=== PATIENT | female | born 1945 | race Caucasian/White ===

== ENCOUNTER 2020-04-29 16:41 | Inpatient (IN) | payer MEDICARE, OTHER ==
[~2020-04-29] VITALS: Ht 162.6 cm; Wt 77.3 kg
[2020-04-29 17:56] LABS: Basophils # (auto) 0 10 ^3/uL (0-0.2); Basophils % (auto) 0.2 % (0.0-2.0); Eosinophils # (auto) 0 10 ^3/uL (0-0.8); Eosinophils % (auto) 0.1 % (0.0-7.0); Hematocrit 47.2 % (36.0-46.0); Hemoglobin 15.5 g/dL (12.2-16.2); Lymphocytes % (auto) 5.4 % (10.0-50.0); Mean Corpuscular Hemoglobin 28.6 pg (28.0-32.0); Mean Corpuscular Hgb Conc. 32.9 g/dL (32.0-36.0); Monocytes # (auto) 1.1 10 ^3/uL (0-1.3); Monocytes % (auto) 5.7 % (0.0-12.0); Neutrophils # (auto) 16.8 10 ^3/uL (1.6-8.6); Neutrophils % (auto) 88.6 % (37.0-80.0); Nucleated Red Blood Cells % 0.1 %; Platelet Count (auto) 327 10^3/uL (140-450); Red Blood Cells 5.42 10^6/uL (4.0-5.20); Red Cell Distribution Width 16.6 % (11.8-14.3)
[2020-04-29 18:15] LABS: Albumin 3.7 g/dL (3.4-5.0); Anion Gap 16 (5-15); Blood Urea Nitrogen 33 mg/dL (7-18); Calcium 9.3 mg/dL (8.5-10.1); Carbon Dioxide 20 mmol/L (21-32); Chloride 95 mmol/L (98-107); Glucose 157 mg/dL (74-106); Potassium 4.2 mmol/L (3.5-5.1); Sodium 131 mmol/L (136-145)
[2020-04-29 18:21] LABS: Alanine Aminotransferase 43 U/L (13-56); Alkaline Phosphatase 89 U/L (45-117); Aspartate Aminotransferase 26 U/L (15-37); BUN/Creatinine Ratio 26.6; Bilirubin, Total 0.9 mg/dL (0.2-1.0); GFR African American 54 mL/min; GFR Non-African American 45 mL/min
[2020-04-29] MEDS ORDERED: MORPHINE SULFATE 4 MG/ML SYR/VIAL IV ONE (19:15)
[2020-04-29] MEDS ORDERED: SODIUM CHLORIDE 0.9% 1,000 ML IV ONE (19:15)
[2020-04-29] MEDS ORDERED: ONDANSETRON HCL 4 MG/2 ML VIAL IV ONE (19:15)
[2020-04-29] MEDS ORDERED: MORPHINE SULF INJ 2 MG/ML SYRINGE 1ML IV ONE (22:45)
[2020-04-29 23:58] LABS: INR 1.01 (0.9-1.15); Partial Thromboplastin Time 25.4 sec (23.64-32.05)
[2020-04-30] MEDS ORDERED: PANTOPRAZOLE 40 MG/10 ML VIAL INJ IV ONE (02:45)
[2020-04-30] MEDS ORDERED: MORPHINE SULFATE 4 MG/ML SYR/VIAL IV ONE (02:45)
[2020-04-30] MEDS ORDERED: PANTOPRAZOLE 40mg/50ML NS AE 50 ML IV ONE (02:45)
[2020-04-30] MEDS ORDERED: PROMETHAZINE HCL 25 MG/ML 1ML IV ONE ×2 (08:45)
[2020-04-30] MEDS ORDERED: FAMOTIDINE (10MG/ML) 2ML VL IV ONE (09:45)
[2020-04-30] MEDS ORDERED: ACETAMINOPHEN 325 MG TAB PO PRN (09:45)
[2020-04-30] MEDS ORDERED: ONDANSETRON HCL 4 MG/2 ML VIAL IV PRN ×2 (09:45→16:00)
[2020-04-30] MEDS ORDERED: SODIUM CHLORIDE 0.9% 1,000 ML IV SCH (09:45)
[2020-04-30] MEDS ORDERED: NITROGLYCERIN 0.4 MG SL TAB SL PRN (09:45)
[2020-04-30] MEDS ORDERED: DOCUSATE SOD 100 MG CAP PO PRN (09:45)
[2020-04-30] MEDS ORDERED: MORPHINE SULF INJ 2 MG/ML SYRINGE 1ML IV PRN ×2 (09:45)
[2020-04-30] MEDS ORDERED: ceFAZolin 1GM/50ML 50 ML IV ONE (09:45)
[2020-04-30] MEDS ORDERED: ALUM & MAG HYDROX-SIMETH LIQ(MAALOX) 30 ML PO PRN (09:45)
[2020-04-30] MEDS: FAMOTIDINE (10MG/ML) 2ML VL IV SCH ×2 (10:00→22:27)
[2020-04-30 10:02] LABS: Cholesterol 164 mg/dL (< 200); HDL Cholesterol 31 mg/dL (40-59); LDL Cholesterol 109 mg/dL (< 100); Triglycerides 194 mg/dL (< 150)
[2020-04-30] MEDS ORDERED: metroNIDAZOLE 500MG/100ML 100 ML IV ONE (11:15)
[2020-04-30 11:51] VITALS: BP 120/69
[2020-04-30] MEDS: BUPIVACAINE W/ EPINEPH 0.25% INJ 50ML MDV ONE ×2 (12:22→14:22)
[2020-04-30] MEDS ORDERED: SUCCINYLCHOLINE CHLORIDE 20 MG/ML 10ML VIAL IV ONE (12:55)
[2020-04-30] MEDS ORDERED: ceFAZolin 1GM/50ML 50 ML IV SCH (14:00)
[2020-04-30] MEDS: IPRATROPIUM BROM 0.5 MG/2.5ML INH SOL NEB SCH ×3 (14:00→22:45)
--- NOTE | 2020-04-30 14:00 | NUR ---
1400 MED NEB NOT ADMINISTERED. PT OFF UNIT IN SURGERY.
[2020-04-30 14:20] VITALS: BP 146/62
[2020-04-30] MEDS ORDERED: HYDROmorphone HCL 2 MG/ML VL IV ONE (14:30)
[2020-04-30] MEDS ORDERED: HYDROmorphone HCL 2 MG/ML VL ONE (15:47)
[2020-04-30] MEDS ORDERED: LABETALOL HCL 5 MG/ML 4ML SYRINGE IV PRN (16:00)
[2020-04-30] MEDS ORDERED: MORPHINE SULFATE 4 MG/ML SYR/VIAL IV PRN ×3 (16:00)
[2020-04-30] MEDS ORDERED: ePHEDrine SULFATE 50 MG/ML AMP IV PRN (16:00)
[2020-04-30] MEDS ORDERED: fentaNYL CITRATE 100 MCG/2 ML VL IV PRN (16:00)
[2020-04-30] MEDS ORDERED: HYDROmorphone HCL 2 MG/ML VL IV PRN (16:00)
[2020-04-30] MEDS ORDERED: fentaNYL Drip 2500mCg/250mlNS 250 ML IV SCH (17:49)
[2020-04-30] MEDS ORDERED: MIDAZOLAM DRIP 50 mg/50mL 50 ML IV ONE (18:17)
[2020-04-30] MEDS: MIDAZOLAM DRIP 50 mg/50mL 50 ML IV SCH (18:20)
[2020-04-30 18:57] VITALS: BP 141/57
[2020-04-30 20:09] VITALS: BP 107/47
[2020-04-30] MEDS: ceFAZolin 1GM/50ML 50 ML IV SCH (22:27)
[2020-04-30 22:45] VITALS: BP 107/51
[2020-04-30] MEDS: metroNIDAZOLE 500MG/100ML 100 ML IV SCH (23:51)
[2020-05-01] VITALS (8 sets, daily range): BP systolic 101–152; BP diastolic 43–79
[2020-05-01] MEDS: IPRATROPIUM BROM 0.5 MG/2.5ML INH SOL NEB SCH ×6 (02:30→23:16)
[2020-05-01 04:29] LABS: Basophils # (auto) 0 10 ^3/uL (0-0.2); Basophils % (auto) 0.1 % (0.0-2.0); Eosinophils # (auto) 0 10 ^3/uL (0-0.8); Hematocrit 35.5 % (36.0-46.0); Hemoglobin 11.8 g/dL (12.2-16.2); Lymphocytes # (auto) 0.3 10 ^3/uL (0.4-5.4); Lymphocytes % (auto) 4.2 % (10.0-50.0); Mean Corpuscular Hemoglobin 29.1 pg (28.0-32.0); Mean Corpuscular Hgb Conc. 33.3 g/dL (32.0-36.0); Mean Corpuscular Volume 87.4 fL (80.0-100.0); Monocytes # (auto) 0.8 10 ^3/uL (0-1.3); Monocytes % (auto) 9.6 % (0.0-12.0); Neutrophils # (auto) 6.9 10 ^3/uL (1.6-8.6); Neutrophils % (auto) 86.1 % (37.0-80.0); Platelet Count (auto) 220 10^3/uL (140-450); Red Blood Cells 4.06 10^6/uL (4.0-5.20); Red Cell Distribution Width 16.5 % (11.8-14.3)
[2020-05-01 04:38] LABS: Potassium 3.6 mmol/L (3.5-5.1)
[2020-05-01 04:54] LABS: Albumin 2.2 g/dL (3.4-5.0); Bilirubin, Total 0.6 mg/dL (0.2-1.0); Calcium 7.4 mg/dL (8.5-10.1); Magnesium 2.2 mg/dL (1.6-2.6); Phosphorus 2.2 mg/dL (2.5-4.90); Total Protein 5.4 g/dL (6.4-8.2)
[2020-05-01 05:23] LABS: INR 1.09 (0.9-1.15); Partial Thromboplastin Time 25.2 sec (23.64-32.05)
[2020-05-01] MEDS: MIDAZOLAM DRIP 50 mg/50mL 50 ML IV SCH (05:39)
[2020-05-01] MEDS: ceFAZolin 1GM/50ML 50 ML IV SCH ×3 (06:17→21:45)
--- NOTE | 2020-05-01 06:30 | NUR ---
Respiratory note: RECEIVED PATIENT ON RENTAL V200 VENT ORALLY INTUBATED WITH A 7.5 ETT SECURED VIA FLORY AT THE 21CM MARKING AT THE LIP, AND MECHANICALLY VENTILATED WITH THE CHARTED SETTINGS. SPO2 97%, LUNG SOUNDS COARSE T/O, SCANT AMOUNT OF THICK CLEAR SECRETIONS WHEN SUCTIONED. SKIN IS WARM/DRY TO THE TOUCH AND IS INTACT NEAR FLORY SITE. THERE IS A NGT IN THE LEFT NARE, AND A LEFT RADIAL ARTERIAL LINE IS IN PLACE. NO EDEMA NOTED, SEQUENTIAL STOCKINGS ARE IN PLACE AND OPERATIONAL. AM CXR ASSESSED AND IT SHOWS ETT IN UNSATISFACTORY POSITION SITTING APPROX 8CM ABOVE THE DIRK, ETT SUBSEQUENTLY ADVANCED 3CM AND RESECURED AT THE 24CM MARKING AT THE LIP, RN MIKE MADE AWARE OF CHANGE. PATIENT IS RESPONSIVE TO BOTH VERBAL/TACTILE STIMULI AND IS SEDATED ON VERSED AND FENTANYL DRIPS. SHE IS RESTING COMFORTABLY AND TOLERATING VENT WELL, NO CHANGES MADE. VENT PLUGGED INTO RED OUTLET AND ALL ALARMS ARE SET AND AUDIBLE. WILL CONTINUE TO ASSESS PATIENT WELL VENTILATOR FUNCTION. MED-[employer] RUN INLINE.
[2020-05-01] MEDS: metroNIDAZOLE 500MG/100ML 100 ML IV SCH ×3 (07:06→21:44)
[2020-05-01] MEDS ORDERED: GASTROGRAFIN 120 ML SOL ONE (09:14)
[2020-05-01] MEDS: ENOXAPARIN SOD 40 MG/0.4 ML SYRINGE SC SCH (10:00)
[2020-05-01] MEDS: LISINOPRIL 20 MG TAB PO SCH (10:00)
[2020-05-01] MEDS: METOPROLOL SUCCINATE XL 50 MG TAB PO SCH (10:00)
[2020-05-01] MEDS: FAMOTIDINE (10MG/ML) 2ML VL IV SCH ×2 (10:40→21:43)
--- NOTE | 2020-05-01 12:09 | NUR ---
Respiratory note: PATIENT PLACED ON CPAP PER DR. HUBBARD'S VERBAL ORDER. ABG TO FOLLOW IN 15MIN, IF ABG IS GOOD EXTUBATE PATIENT. CPAP PS 8, +5 VT: 402 RR: 20 VE: 7.6 HR: 90 SPO2: 96% BP: 121/54
--- NOTE | 2020-05-01 13:00 | NUR ---
Respiratory note: PATIENT EXTUBATED AT 1246, PER DR. HUBBARD'S TELEPHONE ORDER. SHE WAS PLACED ON 30% COOL AEROSOL MASK, NO STRIDOR WAS HEARD, AND PATIENT IS TOLERATING WELL. SPO2 MAINTAINS AT 98%. CHASIDY WALLACE AT BEDSIDE AND AWARE OF EXTUBATION. EXTUBATION COMPLETED WITHOUT INCIDENT.
[2020-05-01] MEDS: MORPHINE SULF INJ 2 MG/ML SYRINGE 1ML IV PRN ×3 (13:46→22:01)
--- NOTE | 2020-05-01 18:08 | NUR ---
SURGICAL DRESSING REMAINS CLEAN, DRY, INTACT. ABDOMEN SOFT. PT MEDICATED FOR PAIN ORDERED. V/S STABLE, NO S/S OF DISTRESS NOTED. WILL CONTINUE TO MONITOR.
[2020-05-01] MEDS ORDERED: LISI-646 PO (18:22)
[2020-05-01] MEDS ORDERED: NITR1SPR TL (18:22)
[2020-05-01] MEDS ORDERED: MET50T PO (18:22)
[2020-05-01] MEDS ORDERED: ROPI3TAB4 PO (18:25)
--- NOTE | 2020-05-01 18:26 | NUR ---
1400: PT RESTING AT THIS TIME, V/S STABLE. NO S/S OF DISTRESS NOTED. SURGICAL DRESSING TO RIGHT ABDOMEN IS CLEAN, DRY,INTACT.WILL CONTINUE TO MONITOR.
--- NOTE | 2020-05-01 18:28 | NUR ---
PT C/O CHEST PAIN, [address] HAYDEE CALERO.
--- NOTE | 2020-05-01 18:31 | NUR ---
15:26-ORDERS RECEIVED FROM DR. HUBBARD FOR TROPONIN X4 AND REPEAT EKG 1HOUR.
--- NOTE | 2020-05-01 18:32 | NUR ---
16:01-SSmita ARNDT NP AT BEDSIDE IN PACU. Addendum: 05/01/20 at 1839 by Lynette Collins RN NOTIFIED PT REPORTS CHEST PAIN RESOLVED.
--- NOTE | 2020-05-01 18:33 | NUR ---
1740- Muriel ARNDT NP UPDATED ON EKG AND TROPONIN LEVEL.
--- NOTE | 2020-05-01 18:40 | NUR ---
18:40-PT RESTING AT THIS TIME, NO S/S OF DISTRESS NOTED. SURGICAL DRESSING IS CLEAN, DRY, INTACT. PT ABLE TO TURN HERSELF.
--- NOTE | 2020-05-01 20:50 | NUR ---
ASSISTED PT TO STAND AND STRETCH, PT TOLERATED WELL AND WITHOUT INCIDENT.
--- NOTE | 2020-05-01 22:47 | NUR ---
PT AWAKE/ALERT, NO S/S OF DISTRESS NOTED. V/S STABLE. WILL CONTINUE TO MONITOR.
--- NOTE | 2020-05-01 23:00 | NUR ---
Opening Shift Note Assumed care of patient, awake and alert, sitting upright on o2 2L NC. No S/S of distress/SOB or pain. ABD is soft, SX incision is C/D/I. Ice pack applied to SX incision site. Castaneda catheter draining dark Cait color to gravity. NGT to left nare. PT talkative to RN. SCD's applied to bilat legs, attached to machine and running. Instructed on POC and to call for assist PRN, will continue to monitor for changes Q1hr and PRN.
--- NOTE | 2020-05-01 23:30 | NUR ---
REPORT GIVEN TO MIKE UMAÑA TO ASSUME CARE OF PT. DRESSING ASSESSED AND REMAINS CLEAN, DRY, AND INTACT. ABDOMEN SOFT. WILL CONTINUE TO MONITOR.
[2020-05-02] VITALS (7 sets, daily range): BP systolic 145–172; BP diastolic 58–89
--- NOTE | 2020-05-02 00:45 | NUR ---
LAB AT BEDSIDE
--- NOTE | 2020-05-02 01:50 | NUR ---
NEGATIVE COVID RESULTS RECEIVED CALL FROM LAB. PTS COVID TEST IS NEGATIVE.
--- NOTE | 2020-05-02 01:52 | NUR ---
PAGED DELINQUENT TAX COLLECTION ASSISTANT
--- NOTE | 2020-05-02 01:54 | NUR ---
BED ASSIGNMENT RECEIVED BED ASSIGNMENT FROM SYSTEM CONSULTANT
[2020-05-02] MEDS: IPRATROPIUM BROM 0.5 MG/2.5ML INH SOL NEB SCH ×6 (02:00→22:00)
--- NOTE | 2020-05-02 02:00 | NUR ---
SBAR SECONDARY RN MERRY GIVEN REPORT IN GREAT DETAIL. RN AWARE OF ALL INTERVENTIONS. WILL PREPARE TO TRANSFER TO FLOOR. PRIMARY RN JOVANNI UNAVAILABLE AT THIS TIME.
--- NOTE | 2020-05-02 02:05 | NUR ---
275B PT TRANSFERRED TO ROOM 275B IN STABLE CONDITION ON PORTABLE MONITOR, PORTABLE OXYGEN AND TELE BOX WITH ALL PERSONAL BELONGINGS (CELL PHONE, GLASSES). SECONDARY RN AT BEDSIDE TO RECEIVE PT. PT PLACED ON O2 2L NC. PT IS AOX4. ABD REMAINS SOFT. SX INCISION SITE IS C/D/I. PT DENIES PAIN AND NAUSEA. FALL PRECATIONS IN PLACE, BED IN LOWEST POSITION. BRAKE/ALARM SET, CALL LIGHT WITHIN REACH. NO OTHER INCIDENTS TO REPORT.
--- NOTE | 2020-05-02 02:15 | NUR ---
PATIENT ARRIVED FROM PACU. MERRY UMAÑA COVERING ASSIGNMENT DURING LUNCH BREAK, RECEIVED PATIENT AND REPORT.
--- NOTE | 2020-05-02 02:25 | NUR ---
ASSUMED PATIENT CARE PATIENT IS ALERT AND ORIENTED X4, ANSWERS IN COMPLETE SENTENCES AND MAKES APPROPRIATE EYE CONTACT. PATIENT RESTING IN BED, NO S/SX OF DISTRESS OR SOB. PATIENT DENIES PAIN AT THIS TIME. BED IS LOCKED AT LOWEST POSITION, BED RAIL UP X2 AND HEAD OF BED IS UP >30 DEGREES FOR SAFETY PRECAUTIONS. PATIENT IS WEARING BILATERAL SCDs ORDERED. NG TUBE AT LEFT NARE AND IS CONNECTED TO LCS. BEDSIDE TABLE WITHIN REACH, CALL LIGHT WITHIN REACH, PERSONAL BELONGINGS WITHIN REACH. DISCUSSED POC WITH PATIENT AND INSTRUCTED PATIENT TO CALL USING CALL PRN; PATIENT VERBALIZED UNDERSTANDING. WILL CONTINUE TO MONITOR Q1H AND PRN.
--- NOTE | 2020-05-02 04:00 | NUR ---
EKG ROUTINE COMPLETE ORDERED.
[2020-05-02] MEDS: hydrALAZINE HCL 20 MG/ML VL IV PRN ×2 (04:35→15:13)
--- NOTE | 2020-05-02 04:41 | NUR ---
ONE DOSE NITROGLYCERIN GIVEN FOR CHEST PAIN PER PROTOCOL. PATIENT REPORTS PAIN RELIEF AND STATES THAT SHE DOES NOT NEED A SECOND DOSE.
[2020-05-02] MEDS: NITROGLYCERIN 0.4 MG SL TAB SL PRN ×2 (04:51→06:09)
--- NOTE | 2020-05-02 06:09 | NUR ---
ONE DOSE NITROGLYCERIN GIVEN FOR CHEST PAIN PER PROTOCOL. PATIENT REPORTS PAIN RELIEF AND STATES THAT SHE DOES NOT NEED A SECOND DOSE.
[2020-05-02] MEDS: ceFAZolin 1GM/50ML 50 ML IV SCH ×3 (06:10→21:17)
[2020-05-02] MEDS: metroNIDAZOLE 500MG/100ML 100 ML IV SCH ×3 (06:43→22:17)
[2020-05-02 06:54] LABS: Basophils # (auto) 0 10 ^3/uL (0-0.2); Basophils % (auto) 0.2 % (0.0-2.0); Eosinophils # (auto) 0 10 ^3/uL (0-0.8); Eosinophils % (auto) 0.5 % (0.0-7.0); Hematocrit 32.6 % (36.0-46.0); Hemoglobin 10.8 g/dL (12.2-16.2); Lymphocytes # (auto) 0.7 10 ^3/uL (0.4-5.4); Lymphocytes % (auto) 7.4 % (10.0-50.0); Mean Corpuscular Hemoglobin 29.1 pg (28.0-32.0); Mean Corpuscular Hgb Conc. 33.2 g/dL (32.0-36.0); Mean Corpuscular Volume 87.7 fL (80.0-100.0); Monocytes # (auto) 0.7 10 ^3/uL (0-1.3); Monocytes % (auto) 7.3 % (0.0-12.0); Neutrophils # (auto) 8.4 10 ^3/uL (1.6-8.6); Neutrophils % (auto) 84.6 % (37.0-80.0); Platelet Count (auto) 191 10^3/uL (140-450); Red Blood Cells 3.72 10^6/uL (4.0-5.20); White Blood Cell 9.9 10^3/uL (4.4-10.8)
[2020-05-02] MEDS: MORPHINE SULF INJ 2 MG/ML SYRINGE 1ML IV PRN ×3 (06:54→19:59)
[2020-05-02 07:11] LABS: Potassium 3.1 mmol/L (3.5-5.1)
[2020-05-02 07:20] LABS: Albumin 2.2 g/dL (3.4-5.0); Bilirubin, Total 0.4 mg/dL (0.2-1.0); Calcium 7.9 mg/dL (8.5-10.1); Magnesium 2.3 mg/dL (1.6-2.6); Total Protein 5.5 g/dL (6.4-8.2)
--- NOTE | 2020-05-02 07:33 | NUR ---
Received reports from noc shift rn. Patient alert and oriented x4. Denies pain, no SOB or signs of distress. Plan of care discussed. Advised to call for assistance prn. NGT to left nares in place and on low continuous suction. Bed in low and locked position. call light within reach. Will continue to monitor q1hr and prn.
[2020-05-02 07:49] LABS: Phosphorus 0.9 mg/dL (2.5-4.90)
[2020-05-02] MEDS: FAMOTIDINE (10MG/ML) 2ML VL IV SCH ×2 (09:40→21:17)
[2020-05-02] MEDS: LISINOPRIL 20 MG TAB PO SCH (09:44)
[2020-05-02] MEDS: METOPROLOL SUCCINATE XL 50 MG TAB PO SCH (09:45)
[2020-05-02] MEDS: ENOXAPARIN SOD 40 MG/0.4 ML SYRINGE SC SCH (09:47)
[2020-05-02] MEDS ORDERED: POTASSIUM PHOSPHATE 44 MEQ in D5W 5% 250 ML IV ONE (10:15)
[2020-05-02] MEDS ORDERED: POTASSIUM EFFERVESENT TAB 25 MEQ PO ONE (10:15)
[2020-05-02] MEDS ORDERED: POTASSIUM CHLORIDE 20 MEQ, LIDOCAINE 1% (LOCAL ANESTH.) 2 ML in SODIUM CHL 0.9% 100 ML IV ONE (10:15)
--- NOTE | 2020-05-02 10:18 | NUR ---
RT NOTE: PT. REFUSED BREATHING TX. AT THIS TIME. PT. STATES SHE HAS A LOT GOING ON AND DOESN'T NEED THE TX. (PT. ON CELL PHONE) NO S/S OF RESPIRATORY DISTRESS NOTED. PT. AWARE NEXT BREATHING TX. WILL BE AT 1400. PT. HR 102, RR 16, POX 95% 2L N/C.
--- NOTE | 2020-05-02 10:45 | NUR ---
DR HUBBARD AT BEDSIDE, DISCUSSED PLAN OF CARE WITH PATIENT. PATIENT REFUSED DOCTOR TO TALK TO FAMILY. MD AWARE OF PATIENT'S CRITICAL PHOSPHATE VALUE OF 0.9.
--- NOTE | 2020-05-02 12:10 | NUR ---
NEW PERIPHERAL IV PLACED 20G LEFT HAND. WILL RESUME SCHEDULED IV MEDICATIONS.
--- NOTE | 2020-05-02 12:48 | NUR ---
DR GUY AT BEDSIDE, DISCUSSED PLAN OF CARE WITH PATIENT. ORDERED TO DISCONTINUATION OF NGT AND ADVANCE DIET TO FULL LIQUID
--- NOTE | 2020-05-02 12:55 | NUR ---
NGT DISCONTINUED PER DR. GUY'S ORDER DIET ADVANCED TO FULL LIQUID
--- NOTE | 2020-05-02 13:03 | NUR ---
Nutrition Assessment Notes please see attached link for complete assessment Est energy needs BW 71 [id number] kcal (23-25kcal/kg BW) Est protein needs: 71-85g (1.0-1.2g/kg BW r/t severe hypoalb) Will reassess prn. Addendum: 05/02/20 at [address] Amended: Links added.
--- NOTE | 2020-05-02 18:55 | NUR ---
1400 SCHEDULED ANCEF AND FLAGYL ANTIBIOTIC NOT GIVEN. PATIENT WANTS TO TAKE BREAKS AND PREVIOUS IV STILL INFUSING. PHARMACY AWARE.
--- NOTE | 2020-05-02 19:15 | NUR ---
assumed care, pt. awake, assisted pt. back to bed, no c/o pain, dressing on rt. abdomen dry and intact, no sob.
[2020-05-03] MEDS: HYDROcodone-ACET 5/325MG TAB PO PRN ×4 (01:33→20:24)
[2020-05-03] MEDS: IPRATROPIUM BROM 0.5 MG/2.5ML INH SOL NEB SCH ×6 (02:00→22:00)
--- NOTE | 2020-05-03 05:00 | NUR ---
pt. refused v/s at this time.
[2020-05-03] MEDS: ceFAZolin 1GM/50ML 50 ML IV SCH ×3 (05:02→21:37)
--- NOTE | 2020-05-03 05:35 | NUR ---
PATIENT REFUSED VITALS AT 0500.
[2020-05-03] MEDS: metroNIDAZOLE 500MG/100ML 100 ML IV SCH ×3 (05:52→21:18)
[2020-05-03 07:17] LABS: Basophils # (auto) 0 10 ^3/uL (0-0.2); Basophils % (auto) 0.2 % (0.0-2.0); Eosinophils # (auto) 0 10 ^3/uL (0-0.8); Eosinophils % (auto) 0.4 % (0.0-7.0); Hematocrit 30.5 % (36.0-46.0); Hemoglobin 10.3 g/dL (12.2-16.2); Lymphocytes # (auto) 0.9 10 ^3/uL (0.4-5.4); Lymphocytes % (auto) 7.7 % (10.0-50.0); Mean Corpuscular Hemoglobin 29.3 pg (28.0-32.0); Mean Corpuscular Hgb Conc. 33.8 g/dL (32.0-36.0); Mean Corpuscular Volume 86.9 fL (80.0-100.0); Monocytes # (auto) 0.8 10 ^3/uL (0-1.3); Monocytes % (auto) 7.1 % (0.0-12.0); Neutrophils # (auto) 9.7 10 ^3/uL (1.6-8.6); Neutrophils % (auto) 84.6 % (37.0-80.0); Nucleated Red Blood Cells % 0.1 %; Platelet Count (auto) 223 10^3/uL (140-450); Red Blood Cells 3.51 10^6/uL (4.0-5.20); Red Cell Distribution Width 16.9 % (11.8-14.3); White Blood Cell 11.5 10^3/uL (4.4-10.8)
[2020-05-03 07:31] LABS: Albumin 2.3 g/dL (3.4-5.0); Calcium 7.6 mg/dL (8.5-10.1); Magnesium 2.2 mg/dL (1.6-2.6); Potassium 3.5 mmol/L (3.5-5.1)
[2020-05-03 07:35] LABS: BUN/Creatinine Ratio 29.9; Bilirubin, Total 0.3 mg/dL (0.2-1.0); Phosphorus 1.8 mg/dL (2.5-4.90); Total Protein 5.8 g/dL (6.4-8.2)
[2020-05-03 08:00] VITALS: BP 138/62
--- NOTE | 2020-05-03 08:00 | NUR ---
Patient had a bowel movement on the bedside commode. Large, soft, formed, dark stools noted. Patient back to bed. Cleaned the commode.
[2020-05-03] MEDS: ENOXAPARIN SOD 40 MG/0.4 ML SYRINGE SC SCH ×2 (09:58→10:00)
[2020-05-03] MEDS: FAMOTIDINE (10MG/ML) 2ML VL IV SCH ×2 (09:58→21:36)
[2020-05-03] MEDS: LISINOPRIL 20 MG TAB PO SCH (10:00)
[2020-05-03] MEDS: METOPROLOL SUCCINATE XL 50 MG TAB PO SCH (10:01)
--- NOTE | 2020-05-03 10:04 | NUR ---
Patient refused Lovenox SC. Risks and benefits explained patient still refused.
[2020-05-03] MEDS ORDERED: POTASSIUM PHOSPHATE 44 MEQ in D5W 5% 250 ML IV ONE (11:45)
[2020-05-03 12:00] VITALS: BP 170/68
--- NOTE | 2020-05-03 12:15 | NUR ---
Called Pharmacy for Potassium Phosphate IV.
--- NOTE | 2020-05-03 12:18 | NUR ---
Dr. Quinton I. at bedside. Patient for possible discharge tomorrow, Thursday.
--- NOTE | 2020-05-03 12:30 | NUR ---
Called Pharmacy again for Potassium Phosphate IV.
[2020-05-03] MEDS: hydrALAZINE HCL 20 MG/ML VL IV PRN (12:51)
--- NOTE | 2020-05-03 12:51 | NUR ---
BP = 170/68, Pulse = 92. Apresoline 10 mg IVP administered for SBP>150.
--- NOTE | 2020-05-03 13:06 | NUR ---
Patient refused to have another IV insertion for the Ancef and Metronidazole IV. IV on the left forearm is intact and patent running on Potassium Phosphate IV. Patient insisted to have her Potassium Phosphate be finished first or put it on hold and have her IV antibiotics finished first. Risks and benefits explained, patient still refused to have another IV line insertion.
--- NOTE | 2020-05-03 14:58 | NUR ---
PT REFUSED MED NEB AT THIS TIME, RN AT BEDSIDE. NO DISTRESS NOTED. WILL CONTINUE TO MONITOR PT.
[2020-05-03 15:01] VITALS: BP 170/68
[2020-05-03 16:40] VITALS: BP 141/68
[2020-05-03] MEDS: LORazepam 0.5 MG TAB PO PRN (21:16)
[2020-05-03 21:45] VITALS: BP 158/73
--- NOTE | 2020-05-03 22:44 | NUR ---
Respiratory note: PT REFUSING SCHED MED NEB TAT THIS TIME. PT STATED THAT IS SHE IS SLEEPING NOT TO WAKE HER FOR MED NEB TX. PT IS SLEEPING AT THE TIME. WILL CONTINUE TO MONITOR.
[2020-05-04] MEDS: IPRATROPIUM BROM 0.5 MG/2.5ML INH SOL NEB SCH ×6 (02:36→22:13)
--- NOTE | 2020-05-04 02:36 | NUR ---
Respiratory note: PT IS SLEEPING AT THIS TIME. MED NEB TX NOT GIVEN. WILL CONTINUE TO MONITOR.
[2020-05-04 04:45] VITALS: BP 153/65
[2020-05-04] MEDS: ceFAZolin 1GM/50ML 50 ML IV SCH ×3 (05:19→21:39)
[2020-05-04] MEDS: HYDROcodone-ACET 5/325MG TAB PO PRN ×4 (05:22→21:49)
[2020-05-04] MEDS: metroNIDAZOLE 500MG/100ML 100 ML IV SCH ×3 (05:48→21:39)
--- NOTE | 2020-05-04 07:30 | NUR ---
Opening Shift Note Assumed care of patient, awake and alert. No S/S of distress/SOB or pain. Instructed on POC and to call for assist PRN, will continue to monitor for changes Q1hr and PRN.
[2020-05-04 08:00] VITALS: BP 162/79
[2020-05-04] MEDS: ENOXAPARIN SOD 40 MG/0.4 ML SYRINGE SC SCH (10:00)
[2020-05-04] MEDS: FAMOTIDINE (10MG/ML) 2ML VL IV SCH ×2 (10:25→21:39)
[2020-05-04] MEDS: METOPROLOL SUCCINATE XL 50 MG TAB PO SCH (10:26)
[2020-05-04] MEDS: LISINOPRIL 20 MG TAB PO SCH (10:32)
[2020-05-04 12:00] VITALS: BP 156/94
--- NOTE | 2020-05-04 14:00 | NUR ---
PT REFUSED P.T. PATIENT REPORTS THAT SHE CAN WALK FINE AND IS GOING HOME TOMORROW.
--- NOTE | 2020-05-04 14:01 | NUR ---
Assessment Patient is a 74-year-old female who is alert and oriented. Prior to admission patient lived home alone and function independently. Per patient she can care for her own ADLs. Prior to admission patient did not have any medical equipment nor home oxygen. Per patient she will return home to her prior living arrangements post discharge and she will need a taxi voucher. Advised patient there is a social service consult for home health physical therapy. Provided patient with information and choice letter. Per patient she does not have a home health preference. Informed patient clinical information will be faxed to [facility]. Informed patient she has the right to participate in all discharge planning. Patient verbalized understanding and agreed to discharge home. Faxed clinical information to [facility]. Per Macarena with [facility] [phone] patient has been accepted and they will see patient within 24-48hrs upon d/c day. Addendum: 05/04/20 at 1401 by ANAYA DOMINGUEZ Amended: Links added.
--- NOTE | 2020-05-04 14:17 | NUR ---
Nutrition Followup Note Wt: 77.9 kg Pt was sleeping with no family by bedside. per records pt s/p sx for hernia now on soft diet with inadequate PO of 50% x 6 per RN doc. Est energy needs BW 71 [id number] kcal (23-25kcal/kg BW) Est protein needs: 71-85g (1.0-1.2g/kg BW r/t severe hypoalb) Will reassess prn. Labs: BUN 20 H, ALB 2.3 L, CA 7.6 L BM: 2 BM noted today per RN note Skin: BS 23 low risk, full details in floor care specialist doc. PES: Altered nutrition related lab values r.t current chronic medical condition aeb hypocalcemia, severe hypoalb Comments Will continue to monitor skin status, PO intake. F/u high 3-5 days Rec: 1) continue current plan of care
--- NOTE | 2020-05-04 14:50 | NUR ---
Handley catheter dc'd Order to discontinue handley catheter. Handley dc'd with clean technique following deflation of balloon. Patient tolerated well with no complaints of pain. Continue care. 450 ml of light zuleika colored urine emptied from bag.
[2020-05-04 17:21] VITALS: BP 164/93
--- NOTE | 2020-05-04 19:30 | NUR ---
Opening Shift Note Assumed care of patient, awake and alert. No S/S of distress/SOB or pain. Insructed on POC and to callfor assist PRN, will continue to monitor for changes Q1hr and PRN. Fall and safety precautions in place. Call light within reach.
[2020-05-04] MEDS: hydrALAZINE HCL 20 MG/ML VL IV PRN (21:49)
[2020-05-04 22:00] VITALS: BP 175/95
[2020-05-05] MEDS: IPRATROPIUM BROM 0.5 MG/2.5ML INH SOL NEB SCH ×4 (02:37→14:48)
[2020-05-05 05:00] VITALS: BP 181/73
[2020-05-05] MEDS: metroNIDAZOLE 500MG/100ML 100 ML IV SCH ×3 (05:00→13:38)
[2020-05-05] MEDS: ceFAZolin 1GM/50ML 50 ML IV SCH ×3 (05:00→13:38)
[2020-05-05] MEDS: hydrALAZINE HCL 20 MG/ML VL IV PRN (05:01)
[2020-05-05] MEDS: HYDROcodone-ACET 5/325MG TAB PO PRN ×2 (05:01→13:43)
[2020-05-05] MEDS: LORazepam 0.5 MG TAB PO PRN (05:10)
--- NOTE | 2020-05-05 05:10 | NUR ---
REFUSE Entered room to administer scheduled IV medication at this time. Patient very anxious, stating "I give up." Asked patient what she meant, patient stated "I need something to calm down, my blood pressure is high, I don't want to be connected to that thing" referring to IV. Informed patient that PRN blood pressure medication will be administered (see emar), PRN anxiety medication will be given (see emar), and IV antibiotics are necessary post procedure. Patient accepted PRN blood pressure and PRN anxiety medication (see emar), but refusing IV antibiotics. Patient stating "I just need to rest." Patient also pulled out own medication from purse, Clonidine. Attempted to inform patient that own medication cannot be at bedside, patient stated "don't you dare take them." Attempted to inform patient of hospital policy, but refusing education. Instructed patient to not take own medication and to put medication back in purse in closet, but patient refusing. Patient's own medication sitting on bedside table. Patient stated she will not take medication without notifying RN. Will inform day shift RN.
--- NOTE | 2020-05-05 06:00 | NUR ---
REFUSE Entered room to reassess patient at this time. Patient resting in bed with eyes closed, even and unlabored breathing. Patient opened her eyes to name. When patient was asked how she's feeling, patient responded with "a little better." Patient more calm at this time, attempted to connect to IV medication, patient still refusing. Will inform day shift RN patient refusing IV antibiotics.
[2020-05-05 08:00] VITALS: BP 132/66
[2020-05-05 09:00] VITALS: BP 132/66
[2020-05-05] MEDS: ENOXAPARIN SOD 40 MG/0.4 ML SYRINGE SC SCH (10:00)
[2020-05-05] MEDS: FAMOTIDINE (10MG/ML) 2ML VL IV SCH (10:09)
[2020-05-05] MEDS: METOPROLOL SUCCINATE XL 50 MG TAB PO SCH (10:10)
[2020-05-05] MEDS: LISINOPRIL 20 MG TAB PO SCH (10:10)
[2020-05-05 13:00] VITALS: BP 142/62
[2020-05-05 17:00] VITALS: BP 156/65
[2020-05-05 17:40] VITALS: BP 156/65
--- NOTE | 2020-05-05 18:12 | NUR ---
DARINEL CALLED TO ENROLLMENT REPRESENTATIVE PATIENT FOR DISCHARGE. THE HAND BUTTON SPLITTER INFORMED ME THAT THE PATIENT WILL BE PICKED UP IN TWO HOURS BECAUSE HE IS [place] THE [place] AND IT WILL TAKE HIM A COUPLE OF HOURS TO GET BACK UP HERE.
--- NOTE | 2020-05-05 18:36 | NUR ---
Discharge instructions given as ordered. Encourage to follow up with PMD and Dr. Jay as instructed. All questions and concerns addressed. Patient verbalized understanding. IV removed with catheter intact, pressure dressing applied. Telemetry unit returned to ICU. Patient taken to [employer] vehicle via wheelchair with all personal belongings, accompanied by staff and family member. No distress noted at time of departure.
== END 2020-05-05 18:36 | disposition home health service (06) | DRG 350 ==
LOC: ER 16:41 → TELE 16:42 → PACU ICU 04-30 17:56 → TELE-WESTW 05-02 02:15
PROVIDERS: ADMIT Hospitalist; ATTEND Internal Medicine
PROC: 0DBU0ZZ Excision of Omentum, Open Approach (ICD-10-PCS; 2020-04-30)
PROC: 5A1935Z Respiratory Ventilation, Less than 24 Consecutive Hours (ICD-10-PCS; 2020-04-30)
PROC: 0BH17EZ Insertion of Endotracheal Airway into Trachea, Via Natural or Artificial Opening (ICD-10-PCS; 2020-04-30)
PROC: 0YQ50ZZ Repair Right Inguinal Region, Open Approach (ICD-10-PCS; principal; 2020-04-30 13:15)
PROC: 0D9670Z Drainage of Stomach with Drainage Device, Via Natural or Artificial Opening (ICD-10-PCS; 2020-05-01)
DX: K40.30 Unilateral inguinal hernia, with obstruction, without gangrene, not specified as recurrent (principal); I21.4 Non-ST elevation (NSTEMI) myocardial infarction; N17.0 Acute kidney failure with tubular necrosis; E87.1 Hypo-osmolality and hyponatremia; E44.0 Moderate protein-calorie malnutrition; E86.0 Dehydration; D72.829 Elevated white blood cell count, unspecified; N18.9 Chronic kidney disease, unspecified; E78.5 Hyperlipidemia, unspecified; G20 Parkinson's disease; G89.29 Other chronic pain; I12.9 Hypertensive chronic kidney disease with stage 1 through stage 4 chronic kidney disease, or unspecified chronic kidney disease; I25.10 Atherosclerotic heart disease of native coronary artery without angina pectoris; J44.9 Chronic obstructive pulmonary disease, unspecified; M19.90 Unspecified osteoarthritis, unspecified site; M54.5 Low back pain; Z20.828 Contact with and (suspected) exposure to other viral communicable diseases; K57.30 Diverticulosis of large intestine without perforation or abscess without bleeding; I25.2 Old myocardial infarction; Z95.5 Presence of coronary angioplasty implant and graft; Z87.891 Personal history of nicotine dependence
CPT/HCPCS: 36415; 36600; 71045; 74176; 80053; 80061; 82805; 83036; 83605; 83735; 83880; 84100; 84484; 85025; 85610; 85730; 86850; 86900; 86901; 87040; 87070; 87077; 87186; 87205; 88302; 93005; 93306; 94003; 94640; 96361; 96365; 96367; 96368; 96375; 96376; C9113; G0378; J0330; J0690; J2001; J2250; J2405; J3490; J7060

== ENCOUNTER 2021-02-13 13:22 | Inpatient (IN) | payer MEDICARE ==
[~2021-02-13] VITALS: Ht 162.6 cm; Wt 59.0 kg
[~2021-02-13 13:22] MED LIST: LISI20TA28 PO; MET50T PO; NITR1SPR TL; ROPI3TAB4 PO
[2021-02-13] MEDS ORDERED: MIDAZOLAM DRIP 50 mg/50mL 50 ML IV ONE (13:35)
[2021-02-13] MEDS ORDERED: SODIUM CHLORIDE 0.9% 1,000 ML IV ONE (13:45)
[2021-02-13] MEDS ORDERED: ANGIOMAX 250 MG VIAL IV ONE (13:55)
[2021-02-13] MEDS ORDERED: SODIUM CHL 0.9% 50 ML ONE ×2 (13:55→14:09)
[2021-02-13] MEDS ORDERED: EPINEPHrine HCL 1 MG/10 ML SYRG ONE (13:55)
[2021-02-13] MEDS ORDERED: ATROPINE SULF 1 MG/10ml SYR ONE (13:55)
[2021-02-13 14:06] LABS: Albumin 2.8 g/dL (3.4-5.0); Calcium 8.2 mg/dL (8.5-10.1); Potassium 5.4 mmol/L (3.5-5.1)
[2021-02-13] MEDS ORDERED: LIDOCAINE 2%HCL (LOCAL ANESTH.) INJ 20ML MDV ONE (14:06)
[2021-02-13] MEDS ORDERED: IOHEXOL 350 MG/ML 100ML IJ ONE ×2 (14:06→14:43)
[2021-02-13 14:18] LABS: BUN/Creatinine Ratio 18.3; Bilirubin, Total 0.4 mg/dL (0.2-1.0); Total Protein 5.4 g/dL (6.4-8.2)
[2021-02-13 14:21] LABS: Basophils # (auto) 0.1 10 ^3/uL (0-0.2); Basophils % (auto) 0.7 % (0.0-2.0); Eosinophils # (auto) 0.2 10 ^3/uL (0-0.8); Eosinophils % (auto) 1.8 % (0.0-7.0); Hematocrit 37.1 % (36.0-46.0); Hemoglobin 11.8 g/dL (12.2-16.2); Lymphocytes # (auto) 5.5 10 ^3/uL (0.4-5.4); Lymphocytes % (auto) 47.2 % (10.0-50.0); Mean Corpuscular Hgb Conc. 31.8 g/dL (32.0-36.0); Mean Corpuscular Volume 94.5 fL (80.0-100.0); Monocytes # (auto) 0.8 10 ^3/uL (0-1.3); Monocytes % (auto) 6.5 % (0.0-12.0); Neutrophils # (auto) 5.1 10 ^3/uL (1.6-8.6); Neutrophils % (auto) 43.8 % (37.0-80.0); Nucleated Red Blood Cells % 0.3 %; Platelet Count (auto) 159 10^3/uL (140-450); Red Blood Cells 3.93 10^6/uL (4.0-5.20); Red Cell Distribution Width 16.6 % (11.8-14.3); White Blood Cell 11.6 10^3/uL (4.4-10.8)
[2021-02-13] MEDS ORDERED: DOPamine 1600MCG/ML D5W 250 ML IV ONE (14:29)
[2021-02-13 14:39] LABS: INR 1.1 (0.9-1.15); Partial Thromboplastin Time 26.8 sec (23.0-31.2)
[2021-02-13] MEDS ORDERED: CALCIUM GLUC 1,000mg/50ml-NS 50 ML IV ONE ×2 (15:00→15:15)
[2021-02-13] MEDS ORDERED: InsuLIN REG 1unit/0.01ml Soln (100units/ml) IV ONE ×2 (15:00→15:15)
[2021-02-13] MEDS ORDERED: SODIUM BICARBONATE 8.4% INJ 50ML SYRINGE IV ONE ×3 (15:00→18:10)
[2021-02-13] MEDS ORDERED: DEXTROSE (50%) 50ML SYRG IV ONE ×2 (15:00→15:15)
[2021-02-13] MEDS ORDERED: SODIUM ZIRCONIUM CYCL 10 GM PAK GT ONE ×2 (15:00→15:15)
[2021-02-13] MEDS ORDERED: CLOPIDOGREL 300 MG TAB ONE (15:03)
[2021-02-13] MEDS ORDERED: ASPirin 325 MG TAB ONE (15:03)
[2021-02-13 15:05] VITALS: BP 104/59
[2021-02-13] MEDS ORDERED: fentaNYL Drip 2500mCg/250mlNS 250 ML IV SCH (15:15)
[2021-02-13] MEDS ORDERED: ASPirin 325 MG TAB PO ONE (15:15)
[2021-02-13] MEDS ORDERED: PROPOFOL 100 ML IV SCH (15:15)
[2021-02-13] MEDS ORDERED: POTASSIUM CHL 20MEQ/100ML 200 ML IV PRN (15:15)
[2021-02-13] MEDS ORDERED: MORPHINE SULF INJ 2 MG/ML SYRINGE 1ML IV PRN ×2 (15:15)
[2021-02-13] MEDS ORDERED: CLOPIDOGREL BISULFATE 75 MG TAB PO ONE (15:15)
[2021-02-13] MEDS ORDERED: NITROGLYCERIN 0.4 MG SL TAB SL PRN (15:15)
[2021-02-13] MEDS ORDERED: NOREPINEPHRINE 8 MG/250ML KIT 250 ML IV SCH (15:15)
[2021-02-13 15:17] VITALS: BP 104/59
[2021-02-13 15:30] VITALS: BP 104/65
[2021-02-13 15:34] VITALS: BP 106/58
[2021-02-13 15:48] VITALS: BP 93/24
[2021-02-13 15:50] VITALS: BP 0/0
[2021-02-13] MEDS ORDERED: ACCU-CHEK COMFORT CURVE STRIP VI SCH (16:00)
[2021-02-13] MEDS ORDERED: ARTIFICIAL TEAR OPTH(EYE) OINT 3.5GM EACHEYE SCH (18:00)
[2021-02-13] MEDS ORDERED: EPINEPHrine HCL 1 MG/10 ML SYRG IV ONE (18:10)
[2021-02-13] MEDS ORDERED: FAMOTIDINE (10MG/ML) 2ML VL IV SCH (22:00)
[2021-02-14] MEDS ORDERED: CLOPIDOGREL BISULFATE 75 MG TAB PO SCH (10:00)
== END 2021-02-13 18:11 | DRG 250 ==
LOC: EDUNIT# 13:22 → EDBD 13:22 → ER 13:22 → ICU WEST 15:07
PROVIDERS: ADMIT Nurse Practitioner Acute Care; ATTEND Nurse Practitioner Acute Care
PROC: 0BH17EZ Insertion of Endotracheal Airway into Trachea, Via Natural or Artificial Opening (ICD-10-PCS; principal; 2021-02-13)
PROC: 02703ZZ Dilation of Coronary Artery, One Artery, Percutaneous Approach (ICD-10-PCS; 2021-02-13)
PROC: 5A1935Z Respiratory Ventilation, Less than 24 Consecutive Hours (ICD-10-PCS; 2021-02-13)
PROC: 5A12012 Performance of Cardiac Output, Single, Manual (ICD-10-PCS; 2021-02-13)
PROC: 02H633Z Insertion of Infusion Device into Right Atrium, Percutaneous Approach (ICD-10-PCS; 2021-02-13)
PROC: 4A023N7 Measurement of Cardiac Sampling and Pressure, Left Heart, Percutaneous Approach (ICD-10-PCS; 2021-02-13)
PROC: B2111ZZ Fluoroscopy of Multiple Coronary Arteries using Low Osmolar Contrast (ICD-10-PCS; 2021-02-13)
PROC: 0D9670Z Drainage of Stomach with Drainage Device, Via Natural or Artificial Opening (ICD-10-PCS; 2021-02-13)
DX: I21.02 ST elevation (STEMI) myocardial infarction involving left anterior descending coronary artery (principal); J96.01 Acute respiratory failure with hypoxia; J96.02 Acute respiratory failure with hypercapnia; E78.5 Hyperlipidemia, unspecified; Z66 Do not resuscitate; E87.5 Hyperkalemia; I10 Essential (primary) hypertension; I46.9 Cardiac arrest, cause unspecified; J44.9 Chronic obstructive pulmonary disease, unspecified; N28.9 Disorder of kidney and ureter, unspecified; Z79.899 Other long term (current) drug therapy; F17.200 Nicotine dependence, unspecified, uncomplicated
CPT/HCPCS: 31500; 36415; 36556; 36600; 70450; 71045; 74176; 80053; 82805; 83880; 84484; 85025; 85610; 85730; 87070; 87205; 92950; 93306; 94002; 99152; 99153; 99291; A4618; G0378; J2250